=== PATIENT | male | born 1980 | race Caucasian/White ===

== ENCOUNTER 2021-08-28 23:27 | Emergency (ER) | payer OTHER ==
[~2021-08-28] VITALS: Ht 180.3 cm; Wt 74.8 kg
[2021-08-29] MEDS ORDERED: ACETAMINOPHEN-1 EAC2 PO (01:04)
[2021-08-29] MEDS ORDERED: CEPHALEXIN500 MG PO (01:04)
[2021-08-29] MEDS ORDERED: IBUPROFEN 600600 M1 PO (01:04)
[2021-08-29 01:11] VITALS: BP 122/67
== END 2021-08-29 01:11 | disposition home or self-care (01) ==
LOC: M.ERS 23:27
DX: T22.211A Burn of second degree of right forearm, initial encounter (principal); T31.0 Burns involving less than 10% of body surface; Z88.5 Allergy status to narcotic agent; X19.XXXA Contact with other heat and hot substances, initial encounter; Y93.89 Activity, other specified; Y92.89 Other specified places as the place of occurrence of the external cause; Y99.0 Civilian activity done for income or pay